=== PATIENT | male | born 1985 | race Caucasian/White ===

== ENCOUNTER 2020-09-17 08:54 | Emergency (ER) | payer SELFPAY ==
[2020-09-17 08:55] VITALS: BP 111/78; PULSE 104; RESP 18; TEMP 36.4; O2SAT 100; BMI 19.9
--- NOTE | 2020-09-17 09:09 | ED.DCSUM_ITS ---
History of Present Illness Informant: Patient Onset: Weeks - 1 week Context: Gradual Onset Timing: Continuous Quality: aching Location: throat Current Severity: Mild Maximum Severity: Moderate Worsened by: eating and drinking Relieved by: nothing Associated Symptoms: cough Narrative: 35-year-old male who denies any significant past medical history. He is a daily smoker. He presents with sore throat cough and loss of taste and smell. Symptoms have been ongoing for a week. No shortness of breath or chest pain. Cough is nonproductive. No hemoptysis. No vomiting or diarrhea. He is not lightheaded or dizzy. No fevers or chills. Sister had a contact of someone who had Covid however her test was negative but that is his concern at this time. He has not had a positive test for Covid during the pandemic. Prior similar symptoms: No Recent Illness/Hospitalization: No <Feng Jacobo - Last Filed: 09/17/20 09:48> <Lencho Pizano - Last Filed: 09/17/20 15:39> Chief Complaint: Shortness of Breath Past Medical History Prior records reviewed: Yes Past Medical History: None Surgical History: - - ankle surgery Smoking Status: Current every day smoker Alcohol: Occasional Drugs: None <Feng Jacobo - Last Filed: 09/17/20 09:48> <Lencho Pizano - Last Filed: 09/17/20 15:39> - Allergies and Home Meds Allergies/Adverse Reactions: Allergies No Known Allergies Allergy (Verified 09/17/20 08:57) Primary Care Physician: Dontae Swanson MD [STAFF PHYSICIAN] - Review of Systems All systems negative except as indicated General: Denies: Chills, Fever, Sweats Eyes: Denies: Visual changes - bilaterally, Diplopia ENT: Reports: Rhinorrhea, Sore throat Cardiovascular: Denies: Chest pain, Palpitations, Heart racing Respiratory: Reports: Cough. Denies: Dyspnea, Sputum, Dyspnea on exertion Gastrointestinal: Denies: Abdominal pain, Nausea, Vomiting, Diarrhea, Melena, Hematochezia Genitourinary: Denies: Dysuria, Hematuria, Frequency Musculoskeletal: Denies: Back pain, Swelling, Extremity Pain Skin: Denies: Rash, Wounds Neurological: Denies: Headache, Weakness, Parasthesia, Numbness <Feng Jacobo - Last Filed: 09/17/20 09:48> Physical Exam Vital Signs/Narrative: Vital Signs Temp Pulse Resp BP Pulse Ox 09/17/20 08:55 97.6 F L 104 H 18 111/78 100 Inital Vital Signs reviewed: Yes General: Well nourished, Well developed, No Acute Distress Head: Normocephalic, Atraumatic Eyes: Perrl, EOMI ENT: Moist mucous membranes, No rhinorrhea Neck: Supple, Nontender, No lymphadenopathy Cardiovascular: Regular rate, Regular rhythm, No murmurs Respiratory: No distress, CTA bilaterally, Chest nontender Abdomen: Soft, Nontender, Nondistended, Normal bowel sounds Back: Nontender, Normal Inspection Extremities: Nontender, No edema Skin: Normal color, No rash Neurological: Alert, Oriented x3, Cranial nerves II-XII grossly intact, Normal Strength, Normal Sensation Psychological: Normal affect, Normal Mood <Feng Jacobo - Last Filed: 09/17/20 09:48> Diagnostic/Tx/Re-eval Chest X-Ray - ED: 1 View, Read by ED Physician, Read by Radiologist, No Acute Disease - Medical Decision Making Patient has normal stable vital signs his pulse ox is 100% he is well-appearing and appears clinically well. His chest x-ray is unremarkable. We will discharge the patient home and he will quarantine until the results of his outpatient Covid test returned. We discussed return precautions to the emergency department and he agreed and understood. All questions answered. Supportive care discussed as well. He will be given a primary care to follow-up with. <Feng Jacobo - Last Filed: 09/17/20 09:48> - Medical Decision Making Patient seen and evaluated independently by myself in concert with physician blood bank assistant. Patient appears well and nontoxic. Chest x-ray negative. Patient will receive Covid testing as an outpatient. Advised return for worsening shortness of breath. Agreeable and discharged home in stable condition. <Lencho Pizano - Last Filed: 09/17/20 15:39> ED Disposition <Feng Jacobo - Last Filed: 09/17/20 09:48> <Lencho Pizano - Last Filed: 09/17/20 15:39> - Plan for ED Patient: Disposition: Home or Assisted Living Diagnosis: Viral URI with cough, Counseled about COVID-19 virus infection Instructions: ED URI Viral Referrals: Dontae Swanson MD [STAFF PHYSICIAN] -
--- NOTE | 2020-09-17 09:12 | RAD_ITS ---
STUDY: X-RAY CHEST REASON FOR EXAM: Male, 35 years old. COUGH, SOB X 1 WK, LOSS OF TASTE AND SMELL, HEADACHE, CONGESTION TECHNIQUE: Single AP portable view of the chest. COMPARISON: None. FINDINGS: Hyperinflation. The lungs are clear. There is no demonstrated pleural abnormality. Normal size heart. Normal mediastinum and eulalia. Normal visualized pulmonary arteries. Normal visualized aortic arch and descending thoracic aorta. Normal visualized thoracic spine. Normal visualized ribs, clavicles, and shoulders. There is no demonstrated abnormality of the visualized soft tissue structures of the upper abdomen. RAD/Chest 1 View (Portable) IMPRESSION: Hyperinflation. The lungs are clear. Electronically Signed: Trae Brown, at 9:43 EDT , Service support ,
== END 2020-09-17 10:13 | disposition home or self-care (01) ==
PROVIDERS: Emergency Provider Physician Assistant Medical
DX: J06.9 Acute upper respiratory infection, unspecified (principal); F17.200 Nicotine dependence, unspecified, uncomplicated
CPT/HCPCS: 71045; 87635; 99281; U0003

== ENCOUNTER 2021-07-25 15:39 | Emergency (ER) | payer SELFPAY ==
[2021-07-25 15:40] VITALS: BP 123/79; PULSE 91; RESP 16; TEMP 36.4; O2SAT 100; BMI 20.6
== END 2021-07-25 16:18 | disposition left against medical advice (07) ==
LOC: ED 16:42
DX: Z53.21 Procedure and treatment not carried out due to patient leaving prior to being seen by health care provider (principal)

== ENCOUNTER 2023-02-12 12:18 | Emergency (ER) | payer SELFPAY ==
[2023-02-12 12:18] VITALS: BP 113/76; PULSE 89; RESP 14; TEMP 36.6; O2SAT 100
--- NOTE | 2023-02-12 14:39 | RAD_ITS ---
STUDY: X-RAY - RIGHT WRIST REASON FOR EXAM: Male, 37 years old. Injury/Pain TECHNIQUE: 3 view(s) of the wrist were obtained. COMPARISON: None. FINDINGS: Normal visualized distal radius and ulna. Normal radiocarpal articulation. Normal distal radioulnar articulation. Normal carpal bones. Normal carpal articulations. Normal carpometacarpal articulation of the thumb. Normal second through fifth carpometacarpal articulations. Normal visualized metacarpal bones. Soft tissue swelling. RAD/Wrist min 3 Views IMPRESSION: Soft tissue swelling. Electronically Signed: Trae Brown MD at 15:04 EDT ,
[2023-02-12 14:49] VITALS: PULSE 84; RESP 18; O2SAT 100
--- NOTE | 2023-02-12 14:51 | ED.RN ---
PATIENT STATES INJURY HAPPENED AT WORK BUT DOES NOT WANT TO FILE UNDER WORKERS COMP.
--- NOTE | 2023-02-12 16:36 | EDS_ITS ---
HPI History of Present Illness HPI Narrative: Patient presents with right wrist pain that became worse today. Patient states he injured his wrist 2 weeks ago and was seen at [facility] emergency department at that time. Patient had x-rays done at that time which were negative. Patient was given a wrist brace. Patient states he was using today and he felt worsening pain in his right wrist. Patient describes the pain as throbbing. Patient denies any specific trauma or injury. Patient states nothing makes it b giuliano nothing makes it worse. Patient denies any paresthesias or weakness. Patient denies any other injuries. Chief Complaint: Upper Extremity Injury Informant: patient Onset/Context/Timing Onset: Today Timing: Continuous Quality of Pain: Throbbing Location: Right wrist Worsened by: Nothing Relieved by: Nothing Associated Symptoms Associated Symptoms: Negative for Parasthesia, Weakness or Loss of Funtion [facility] Medical History (Updated 02/12/23 @ 16:[address] Sae Ramos DO) Chronic neck and back pain Home Medications naproxen 500 mg tablet (Naprosyn) 500 mg PO BID PRN pain #20 tabs 02/12/23 [Rx Last Taken Unknown] Allergy/AdvReac Type Severity Reaction Status Date / Time No Known Allergies Allergy Verified 02/12/23 12:22 no surgical history Social History Smoking Status: Current every day smoker tobacco type: cigarettes ROS ROS ED Constitutional Constitutional ED: Denies chills or fever(s) Eyes Eyes: Denies blurry vision or change in vision ENT ENT ED: Denies rhinorrhea or sore throat Cardiovascular Cardiovascular: Denies chest pain or palpitations Respiratory/Chest Respiratory/Chest: Denies cough or dyspnea Gastrointestinal Gastrointestinal: Denies nausea or vomiting Genitourinary Genitourinary ED: Denies dysuria or hematuria Musculoskeletal Musculoskeletal: Reports back pain and neck pain Integumentary Denies abscess or rash Neurologic Neurologic: Denies headache(s) or weakness Allergic/Immunologic Allergic/Immunologic ED: Denies mouth swelling or urticaria EXAM Physical Exam Const Vital Signs: 02/12/23 12:18 02/12/23 14:49 Temperature 97.9 F Temperature Source Temporal Pulse Rate 89 84 Respiratory Rate 14 18 Blood Pressure 113/76 Blood Pressure Mean 88 Pulse Ox 100 100 Oxygen Delivery Method Room Air Positive well nourished and well developed General Appearance ED: well developed and NAD HEENT Reports moist mucous membranes Extremity Extremity Narrative: There is tenderness over the dorsal aspect of the right wrist. There is no tenderness over the anatomic snuffbox. There is no pain with axial loading of the thumb. Range of motion was limited in all motions of the right wrist secondary to pain. There is no obvious deformity noted. There is no edema or ecchymosis. Radial pulses are equal bilaterally. Sensation was intact light touch in the radial, median, and ulnar areas. Strength is 5/5 in the radial, median, and ulnar areas. Neuro oriented x3, CN's II-XII intact bilaterally, moves all extremities, no focal motor deficits and no sensory deficits noted Sensorium / Orientation: alert Motor Exam: strength 5/5 throughout Psych mental status grossly normal MDM MDM MDM Narrative Medical decision making narrative: Differential diagnosis includes right wrist sprain, soft tissue contusion, and occult fracture. X-rays of the right wrist will be obtained to assess for occult fracture. Radiography Diagnostic Testing: Clinical Impression(s) from Imaging Studies Wrist X-Ray 02/12/23 14:39 IMPRESSION: Soft tissue swelling. Electronically Signed: Trae Brown MD at 15:04 EDT , X-rays of the right wrist were obtained. There are 3 views. On my independent interpretation, there is no acute fracture. There is no dislocation. There is some mild soft tissue swelling. Radiologist also interpreted the x-rays and agrees. Treatment and Re-Evaluation Narrative: Patient was advised of his findings. Patient was given a prescription for Naprosyn. Patient was instructed to ice and elevate his right wrist. Patient was given a referral for a primary care physician. Patient was also given referral for orthopedics. Patient was instructed to follow-up in 7 to 10 days. Patient understands and is agreeable with the plan. All questions were answered. Discharge Plan Triage Chief Complaint: Upper Extremity Injury Other Complaint: Confusion ED Provider: Sae Ramos Dx/Rx/DC Orders Clinical Impression: Sprain of right wrist Instructions: ED Wrist Sprain Prescriptions: New naproxen [Naprosyn] 500 mg tablet 500 mg PO BID PRN (Reason: pain) Qty: 20 0RF Primary Care Provider: Care Physician,No Primary Referrals: Roseanna Albright MD [Med Staff - Conference Service Coordinator] - 5-7 Days Michael Travis MD [Med Staff - Active Staff] - 10-14 Days if not better Care Physician,No Primary [Primary Care Provider] - Disposition Disposition: Home, Self Care
== END 2023-02-12 16:44 | disposition home or self-care (01) ==
PROVIDERS: Emergency Provider Emergency Medicine; Visit Provider Emergency Medicine
DX: S63.91XA Sprain of unspecified part of right wrist and hand, initial encounter (principal); X58.XXXA Exposure to other specified factors, initial encounter; F17.210 Nicotine dependence, cigarettes, uncomplicated
CPT/HCPCS: 73110; 99282